=== PATIENT | male | born 1975 | race Caucasian/White ===

== ENCOUNTER 2018-05-07 18:04 | Emergency (ER) | payer MEDICAID, OTHER ==
[2018-05-07 18:10] VITALS: BP 146/90
--- NOTE | 2018-05-07 18:22 | EDPHY ---
H & P Time Seen by Provider: 05/07/18 18:13 HPI/ROS: CHIEF COMPLAINT: Right thumb injury HISTORY OF PRESENT ILLNESS: Cut it trying to get a jagged broken part of a plate out from where it was stuck. Injured his right thumb. No foreign body sensation and no weakness or numbness distally. REVIEW OF SYSTEMS: Negative PAST MEDICAL HISTORY: Tetanus up-to-date Social history: Smoker General Appearance: Alert and conversant, cooperative. 1.5 cm laceration on the volar surface of the proximal phalanx of the right thumb. Normal 2 point discrimination normal capillary refill. Normal extensor tendon function, he does have some weak flexor tendon function on that hand. He can flex the thumb but strength is decreased compared to the left hand. Emergency Department course/MDM: Procedure: Laceration repair. Verbal consent was obtained from the patient. The 1.5 cm laceration on the volar surface of the proximal thumb phalanx was anesthetized using 0.5% bupivacaine without epinephrine. The wound was irrigated with standard emergency department protocol, draped and explored. I used to [place] tourniquet for hemostasis, did not see a flexor tendon laceration but unable to completely visualize. There were no deep structures involved. No tendon injury was identified. No foreign body found. The wound was repaired with 5 0 Prolene. The wound repair was simple. Excellent hemostasis was obtained. Wound care instructions were discussed and the patient was warned regarding scarring. The procedure was performed by myself. Bulky dressing and oral antibiotics. With decreased flexion of the thumb concern for possible tendon laceration, patient warned. Mandatory hand surgery follow-up. Smoking Status: Current every day smoker Constitutional: Initial Vital Signs Temperature (C) 36.6 C 05/07/18 18:07 Heart Rate 92 05/07/18 18:07 Respiratory Rate 18 05/07/18 18:07 Blood Pressure 146/90 H 05/07/18 18:07 O2 Sat (%) 97 05/07/18 18:07 O2 Delivery Mode Room Air Allergies/Adverse Reactions: No Known Allergies Allergy (Verified 05/07/18 18:10) Home Medications: Medication Instructions Recorded Miscellaneous Medical Supply [NO 1 ea MISC AD 03/19/13 HOME MEDS] Cephalexin [Keflex] 500 mg PO QID #28 cap 05/07/18 MDM/Departure - MDM Imaging Results: Imaging Impressions Hand X-Ray 05/07/18 18:19 Impression: 1. Normal right hand series. Medications Given: Discontinued Medications Cephalexin HCl (Keflex) 500 mg PO EDNOW ONE PRN Reason: Protocol Stop: 05/07/18 19:11 Last Admin: 05/07/18 19:17 Dose: 500 mg - Depart Disposition: Home, Routine, Self-Care Clinical Impression: Laceration of right thumb Qualifiers: Encounter type: initial encounter Damage to nail status: without damage Foreign body presence: without foreign body Qualified Code(s): S61.011A - Laceration without foreign body of right thumb without damage to nail, initial encounter Condition: Good Instructions: Laceration (ED) Additional Instructions: It is possible that you sustained a tendon laceration in your thumb. You should see a hand surgeon specialist without fail in the office in the next 48 hr (Dr. Mora, or other per work comp). Prescriptions: Cephalexin [Keflex] 500 mg PO QID #28 cap Referrals: MAO ESQUIVEL [Primary Care Provider] - As per Instructions Work Comp Ref/Restrictions [Outside] - As per Instructions Seth Mora MD [Medical Doctor] - As per Instructions
[2018-05-07] MEDS ORDERED: CEPHALEXIN 500 MG CAP PO ONE (19:10)
== END 2018-05-07 19:22 | disposition home or self-care (01) ==
PROC: 0HQFXZZ Repair Right Hand Skin, External Approach (ICD-10-PCS; principal; 2018-05-07)
DX: S61.011A Laceration without foreign body of right thumb without damage to nail, initial encounter (principal); F17.200 Nicotine dependence, unspecified, uncomplicated; W26.8XXA Contact with other sharp object(s), not elsewhere classified, initial encounter; Y99.8 Other external cause status; Y93.89 Activity, other specified

== ENCOUNTER 2018-11-27 06:46 | Emergency (ER) | payer MEDICAID, OTHER ==
[2018-11-27] MEDS ORDERED: IBUPROFEN 600 MG TAB PO ONE (07:10)
--- NOTE | 2018-11-27 07:12 | EDPHY ---
H & P Stated Complaint: R wrist and R elbow pain after fall on ice today Time Seen by Provider: 11/27/18 07:03 HPI/ROS: Chief Complaint: Fall, elbow and wrist pain HPI: 42-year-old male had a mechanical fall on the ice this morning, landing on his right wrist and right elbow. He has got pain over his medial epicondyle and distal radius. No prior injuries. He did not hit his head. No swelling. Pain is about a 4/10. ROS: 10 systems were reviewed and were negative except those elements noted in the HPI. PMH: Denies Social History: Positive smoking, no alcohol, no recreational drug use Family History: non-contributory Physical Exam: General: Awake, alert, no acute distress Right upper extremity: Shoulder is nontender, full range of motion without pain , Elbow: Tenderness of the medial epicondyle without deformity or crepitus. No other bony tenderness or deformity. Patient is able to flex fully and extend fully. Does have decreased supination secondary to pain. No radial head tenderness. No olecranon tenderness. Wrist: Mild tenderness over the distal radius. No carpal tenderness. He has got full flexion extension of all digits. Sensations intact in the radial, median, and ulnar nerve distribution. Capillary refills less than 2 sec. Skin: No rash. - Personal History Current Tetanus Diphtheria and Acellular Pertussis (TDAP): Yes Tetanus Vaccine Date: within 10 years - Medical/Surgical History Hx Asthma: No Hx Chronic Respiratory Disease: No Hx Diabetes: No Hx Cardiac Disease: No Hx Renal Disease: No Hx Cirrhosis: No Hx Alcoholism: Yes Hx HIV/AIDS: No Hx Splenectomy or Spleen Trauma: No Other PMH: ETOH, chronic back pain from herniated disk - Social History Smoking Status: Current every day smoker Constitutional: Initial Vital Signs Temperature (C) 36.6 C 11/27/18 06:55 Heart Rate 87 11/27/18 06:55 Respiratory Rate 16 11/27/18 06:55 Blood Pressure 149/90 H 11/27/18 06:55 O2 Sat (%) 98 11/27/18 06:55 O2 Delivery Mode Room Air Allergies/Adverse Reactions: No Known Allergies Allergy (Verified 11/27/18 06:55) Home Medications: Medication Instructions Recorded Miscellaneous Medical Supply [NO 1 ea MISC AD 03/19/13 HOME MEDS] Medical Decision Making - Diagnostics Imaging Results: Right elbow x-ray is negative per my interpretation Right wrist is negative per my interpretation. Imaging: I viewed and interpreted images myself ED Course/Re-evaluation: 43-year-old male with elbow contusion and wrist contusion status post fall. I do not appreciate any bony abnormalities on the x-rays. These will be over- read by the radiologist. Patient has been given ibuprofen here. Will discharge with follow-up with primary physician for any concerns. - Data Points Medications Given: Discontinued Medications Ibuprofen (Motrin) 600 mg PO EDNOW ONE Stop: 11/27/18 07:11 Last Admin: 11/27/18 07:12 Dose: 600 mg Departure - Departure Disposition: Home, Routine, Self-Care Clinical Impression: Elbow contusion, Wrist contusion Condition: Good Instructions: Contusion in Adults (ED) Additional Instructions: Your x-rays appear normal in the emergency department today. These will be reviewed by the radiologist. It is possible that early subtle fractures can be missed on the initial x-rays. Is important follow up with primary care physician if you're symptoms are not improving. Take ibuprofen, 600 mg every 8 hr. You may alternate with acetaminophen, 1000 mg every 8 hr. Referrals: JUANA DIEHL,. [Primary Care Provider] - As per Instructions
[2018-11-27 08:10] VITALS: BP 121/74
== END 2018-11-27 08:10 | disposition home or self-care (01) ==
LOC: CED 06:46
DX: S50.01XA Contusion of right elbow, initial encounter (principal); S60.211A Contusion of right wrist, initial encounter; W00.0XXA Fall on same level due to ice and snow, initial encounter; Y92.9 Unspecified place or not applicable; Y93.9 Activity, unspecified; Y99.9 Unspecified external cause status
CPT/HCPCS: 73080-PO; 73110-PO; 99283-ER